=== PATIENT | male | born 1970 | race Caucasian/White ===

== ENCOUNTER 2021-07-17 16:06 | Inpatient (IN) | payer BC ==
[~2021-07-17] VITALS: Ht 193.1 cm; Wt 164.0 kg
[~2021-07-17 16:06] MED LIST: ZESTRIL 10MG10 MG PO
[2021-07-26] VITALS (14 sets, daily range): BP systolic 146–166; BP diastolic 66–101; PULSE 84–110; TEMP 97.9–98.3
[2021-07-26] MEDS ORDERED: GLUCOPHAGE1000 MG PO (08:41)
[2021-07-26] MEDS ORDERED: ZOCOR 20MG20 MG PO (08:42)
[2021-07-26] MEDS ORDERED: COZAAR100 MG PO (08:42)
[2021-07-26] MEDS ORDERED: ZYLOPRIM 100MG100 MG PO (08:43)
[2021-07-26] MEDS ORDERED: NORVASC 10MG10 MG PO (08:43)
[2021-07-26] MEDS ORDERED: INDOCIN50 MG PO (08:44)
[2021-07-26] MEDS ORDERED: ULTRAM 50MG TAB50 MG PO (08:44)
[2021-07-26] MEDS ORDERED: NATURAL MAGNES200 MG PO (08:45)
--- NOTE | 2021-07-26 08:52 | NUR ---
Blood pressure 164/87 on recheck.
--- NOTE | 2021-07-26 20:50 | NUR ---
Pt. sitting up in bed. Pt. is A&OX3, assessment complete. IV to lt. hand patent, IV fluids infusing per orders. TECHNICAL SYSTEM ANALYST also infusing per orders. Pt. reports pain at a 5 on pain scale and pushes TECHNICAL SYSTEM ANALYST button. Pt. assisted with ambulation at this time. Pt. able to ambulate into the do and back with standby assist. Pt. assisted back into bed and repositioned for comfort. Pt. tolerated well. Nielsen catheter to DD, clear yellow urine. Dressings to abd. CDI. Pt. denies further needs, call light within reach.
[2021-07-27 03:19] VITALS: BP 167/86; PULSE 101; TEMP 98.6
[2021-07-27 07:02] LABS: BASO % 0.2 % (0.0-2.0); EOS % 0.1 % (0-4.0); GRAN # 7.1 K/mm3 (1.4-6.5); GRAN % 83.9 % (42.2-75.2); HEMOGLOBIN 13.9 g/dl (13.5-18.0); LYMPH # 0.6 K/mm3 (1.2-3.4); LYMPH % 7.4 % (20.0-51.0); MEAN CELL VOLUME 86 fl (80.0-100.0); MEAN CORPUSCULAR HEMOGLOBIN 29 pg (27.0-31.0); MEAN CORPUSCULAR HGB CONC 34 g/dl (33.0-37.0); MEAN PLATELET VOLUME 11.3 fl (7.4-10.4); MONO # 0.7 K/mm3 (0.1-0.6); MONO % 8.2 % (1.7-9.3); PLATELET COUNT 222 K/mm3 (130-400); RED BLOOD COUNT 4.79 M/mm3 (4.20-5.60); REDCELL DISTRIBUTION WIDTH-CV 13.7 % (11.5-14.5)
[2021-07-27 07:13] LABS: CALCIUM 9.8 mg/dL (8.4-10.2); CREATININE, serum 1.39 mg/dL (0.72-1.25); POTASSIUM 4.2 mmol/L (3.5-4.5)
[2021-07-27 08:00] VITALS: BP 167/86; PULSE 101
[2021-07-27 11:08] VITALS: BP 170/81; PULSE 82; TEMP 98.3
--- NOTE | 2021-07-27 11:26 | NUR ---
S3B Multi Sensor Operator met with patient to discuss discharge planning. Patient lives in [place] with his , Kassi (ph#[phone]) and sees Dr. Cash for primary care. Patient obtains medications from [facility] with no difficulties and does not use any DME. Patient is independent with [employer] and is employed. Patient believes he has a General DPOA, but not one for healthcare. Patient plans to return home upon discharge. Discharge Plan: Home
--- NOTE | 2021-07-27 12:15 | NUR ---
PT TO RADIOLOGY FOR PROCEEDURE.
[2021-07-27 19:35] VITALS: BP 157/90; PULSE 91; TEMP 99.5
[2021-07-27 23:01] VITALS: BP 129/84; PULSE 86; TEMP 98.4
[2021-07-27 23:47] VITALS: BP 170/89; PULSE 89; TEMP 99
--- NOTE | 2021-07-28 02:52 | NUR ---
PT SLEEPING IN BED @ THIS TIME, SNORING. PT HAS REQUESTED PAIN MEDICATION Q 4HRS, RATES ABDOMINAL PAIN 4-6/10. PT IS PLEASANT ET COOPERATIVE. PT AMBULATED IN HALLWAY WITH SBA X1 THIS MORNING WHILE AWAKE, TOLERATES WELL, WALKS TO NURSES STATION ET BACK. PERDOMO CATHETER DRAINING CLEAR KIRSTEN URINE. PT HAS BEEN VERY SLOWLY SIPPING ON WATER. YESENIA DRAIN WITH COMPRESSION DRAINING SANGUINEOUS DRAINAGE. IVF INFUSING. CALL LIGHT WITHIN REACH.
[2021-07-28 03:49] VITALS: BP 156/85; PULSE 83; TEMP 98.3
--- NOTE | 2021-07-28 07:30 | NUR ---
Pt doing well at this time. Minimal pain complaints, reports pain medication helping, no needs verbalized.
--- NOTE | 2021-07-28 10:50 | NUR ---
Pt has been up walking in the halls. Slow getting up, but does well once up. Nielsen catheter removed. SCDs on bilaterally, YESENIA drain to bulb suction. Specimen has been sent down to lab. Pain tolerable, no needs verbalized, call light withing reach.
[2021-07-28] MEDS ORDERED: PRILOSEC 20MG20 MG PO (11:13)
[2021-07-28] MEDS ORDERED: ZOFRAN 4MG T4 MG/TAB PO (11:13)
[2021-07-28] MEDS ORDERED: NORCO 325 MG-51 TAB PO (11:13)
--- NOTE | 2021-07-28 11:35 | NUR ---
YESENIA drain removed at this time per orders. Discharge orders have been entered. PT has called his , informed him to notify myself once he knows when she will be here to get him. Pt denies any other needs, has no questions. Reviewed home care for incisions and site where drain was. Instructed okay to shower in 24 hours and remove all bandages. Call light within reach
[2021-07-28 11:53] VITALS: BP 153/76; PULSE 77; TEMP 98.6
--- NOTE | 2021-07-28 13:45 | NUR ---
Reviewed discharge instructions with pt to include follow up appointment, prescriptions and incision care. All questions answered. Stressed the importance of making sure he gets up and walks at least every 2 hours. INT removed from left hand. Informed him to notify nursing when his arrives to take him home.
--- NOTE | 2021-07-28 14:45 | NUR ---
PT escorted out at this time
== END 2021-07-28 14:45 | disposition home or self-care (01) | DRG 621 ==
LOC: INPTSU 07-26 07:35 → SURG 07-26 10:00
PROVIDERS: ADMIT Surgery
PROC: 8E0W4CZ Robotic Assisted Procedure of Trunk Region, Percutaneous Endoscopic Approach (ICD-10-PCS; 2021-07-26)
PROC: 0D164ZA Bypass Stomach to Jejunum, Percutaneous Endoscopic Approach (ICD-10-PCS; principal; 2021-07-26 10:00)
DX: E66.01 Morbid (severe) obesity due to excess calories (principal); Z68.42 Body mass index [BMI] 45.0-49.9, adult; I10 Essential (primary) hypertension; E11.9 Type 2 diabetes mellitus without complications; E78.00 Pure hypercholesterolemia, unspecified; M19.90 Unspecified osteoarthritis, unspecified site; F17.210 Nicotine dependence, cigarettes, uncomplicated; Z96.653 Presence of artificial knee joint, bilateral
CPT/HCPCS: A4314; C9113; J0330; J0690; J1170; J1650; J1956; J2405; J2704; J3010; J3480; J7030; J7120

== ENCOUNTER 2022-12-06 06:23 | Day surgery (SDC) | payer BC ==
[~2022-12-06] VITALS: Ht 193 cm; Wt 126.0 kg
[~2022-12-06 06:23] MED LIST changes: +COZAAR100 MG PO; +GLUCOPHAGE1000 MG PO; +INDOCIN50 MG PO; +NATURAL MAGNES200 MG PO; +NORCO 325 MG-51 TAB PO; +NORVASC 10MG10 MG PO; +PRILOSEC 20MG20 MG PO; +ULTRAM 50MG TAB50 MG PO; +ZOCOR 20MG20 MG PO; +ZOFRAN 4MG T4 MG/TAB PO; +ZYLOPRIM 100MG100 MG PO
[2022-12-06] MEDS ORDERED: COLCRYS0.6 MG PO (07:05)
[2022-12-06 08:13] VITALS: BP 125/86; BP 135/78; PULSE 65; PULSE 77; TEMP 97.1; TEMP 97.2
[2022-12-06 08:30] VITALS: BP 120/86; PULSE 65; TEMP 97
[2022-12-06 08:54] VITALS: BP 131/79; PULSE 69
[2022-12-06 09:00] VITALS: BP 127/85; PULSE 70
--- NOTE | 2022-12-06 09:47 | NUR ---
0830-PATIENT ARRIVED VIA CART TO [facility], REPORT RECEIVED FROM JALEEL AUGUSTINE. 0835-PATIENT GIVEN WATER AND PUDDING PER REQUEST, VSS. 0840-PATIENT TOLERATED PO INTAKE, NO C/O PAIN OR NAUSEA. 0855-DISCHARGE INSTRUCTIONS REVIEWED WITH PATIENT, VERBALIZED UNDERSTANDING. NO QUESTIONS AT THIS TIME. 0905-DR. GRACIA IN ROOM WITH PT, FINDINGS REVIEWED WITH PT. VSS. 0925-PATIENT DRESSED INDEPENDENTLY. IV SITE DISCONTINUED ,CATHETER TIP INTACT. BANDAGE APPLIED. PATIENT TAKEN VIA WHEELCHAIR TO [facility], ACCOMPANIED BY SPOUSE.
== END 2022-12-06 09:25 | disposition home or self-care (01) ==
LOC: SDCO 06:23
DX: Z12.11 Encounter for screening for malignant neoplasm of colon (principal); E66.01 Morbid (severe) obesity due to excess calories; Z87.891 Personal history of nicotine dependence; Z68.36 Body mass index [BMI] 36.0-36.9, adult
CPT/HCPCS: J2704; J7120